=== PATIENT | female | born 1995 | race Two or more races ===

== ENCOUNTER 2024-12-12 13:33 | Inpatient (IN) ==
[2024-12-12 14:07] LABS: BLOOD/HEMOGLOBIN,URINE 5+ (NEGATIVE); LEUKOCYTE ESTERASE ,URINE 2+ (NEGATIVE); NITRITES,URINE POSITIVE (NEGATIVE)
[2024-12-12 14:11] LABS: AMNISURE ROM TEST THERE IS A RUPTURE (NO RUPTURE)
[2024-12-12 14:20] LABS: APPEARANCE,URINE SLIGHTLY HAZY (CLEAR); SQUAMOUS EPITHELIAL CELL,UR RARE /HPF (NEGATIVE)
[2024-12-12] MEDS ORDERED: NUBAIN INJ 20 MG AMP IVP PRN (14:31)
[2024-12-12] MEDS ORDERED: OXYTOCIN 20 UNIT/1,000 ML-NS 20 UNIT/1,000 ML PLAST..BAG IV PRN (14:31)
[2024-12-12] MEDS ORDERED: ZOFRAN INJ 4 MG VIAL IVP PRN (14:31)
[2024-12-12] MEDS ORDERED: PITOCIN IVP ONE (14:31)
[2024-12-12] MEDS ORDERED: REGLAN INJ 10 MG VIAL IVP PRN (14:31)
[2024-12-12] MEDS ORDERED: NS 100 ML IV 100 ML ONE (14:40)
[2024-12-12] MEDS ORDERED: BETADINE SOLN ONE (14:40)
[2024-12-12] MEDS ORDERED: PITOCIN ONE (14:40)
[2024-12-12] MEDS ORDERED: D5 1/2 NS 1,000 ML 1,000 ML IV ONE (14:40)
[2024-12-12 14:53] LABS: MEAN PLATELET VOLUME 11.7 fL (7.4-11.0); RED CELL DISTRIBUTION WIDTH 15.7 % (11.6-16.5)
[2024-12-12] MEDS: D5 1/2 NS 1,000 ML 1,000 ML IV SCH (14:53)
[2024-12-12] MEDS: AMPICILLIN VIAL 2 GRAM ONE (14:53)
[2024-12-12 14:57] LABS: CREATININE 0.51 mg/dL (0.55-1.02); eGFR NON BLACK RACES > 60 (>60)
[2024-12-12] MEDS: NS 1,000 ML IV 1,000 ML ONE (15:00)
[2024-12-12] MEDS: NUBAIN INJ 10 MG AMP ONE (15:11)
[2024-12-12] MEDS: ZOFRAN INJ 4 MG VIAL ONE (15:15)
[2024-12-12] MEDS ORDERED: MOTRIN TAB 800 MG PO PRN ×2 (15:58→16:13)
[2024-12-12] MEDS ORDERED: AMBIEN PO PRN (16:13)
[2024-12-12] MEDS ORDERED: MILK OF MAGNESIA PO PRN (16:13)
[2024-12-12] MEDS ORDERED: DERMOPLAST PAIN RELIEF SPRAY TOP PRN (16:13)
--- NOTE | 2024-12-12 16:56 | DR.OB ---
OB QUICK NOTE Assessment/Plan (1) Active labor at term: Assessment/Plan: Delivery Note EDUCATION AND TRAINING MANAGER 12/12/24 at 3:49pm Patient complete and pushing. Mother and stable. Head delivered over intact perineum. Nose and mouth bulb suctioned. No nuchal cord. Body delivered over intact perineum. Cord clamped x 2 and cut. handed to attendant. Cord sent for gases. Placenta delivered spontaneously / intact / 3 vessel cord. No CVX / vaginal / perineal tears. Viable male infant delivered by , VTX/OA, wt=6'7" and 8/9, stable to NBN. Mother stable to RR. NLS=[id number].
[2024-12-12] MEDS: OXYTOCIN 20 UNIT/1,000 ML-NS 20 UNIT/1,000 ML PLAST..BAG IV SCH (18:00)
[2024-12-12] MEDS: MACROBID CAP 100 MG EXT REL PO SCH (22:00)
[2024-12-13 01:01] VITALS: RESP 18
[2024-12-13] MEDS: DEPO-PROVERA CONTRACEPTIVE INJ IM ONE (08:54)
[2024-12-13] MEDS: PRENATAL PLUS PO SCH (08:54)
[2024-12-13] MEDS: ADACEL or BOOSTRIX TDaP VACCINE IM ONE (11:18)
[2024-12-13 14:32] VITALS: O2SAT 99
[2024-12-13 17:03] VITALS: BP 122/70; PULSE 65; TEMP 97.9
== END 2024-12-13 17:20 | disposition home or self-care (01) | DRG 806 ==
LOC: ER 13:36 → LD 14:32 → MED/SURG 16:51
PROVIDERS: ADMIT Specialist; ATTEND Specialist